=== PATIENT | male | born 1940 | race Caucasian/White ===

== ENCOUNTER 2017-03-04 15:51 | Inpatient (IN) | payer MEDICARE, OTHER ==
[2017-03-04] MEDS ORDERED: NS 0.9% 1000 ML* 1,000 ML IV ONE (16:12)
[2017-03-04 16:36] LABS: Hemoglobin 13.4 g/dl (14.0-18.0); Mean Corpuscular Volume 90 fL (80-94); Mean Platelet Volume 10 um3 (7.4-10.4); White Blood Count 5.8 10^3/ul (3.5-10.8)
[2017-03-04 16:40] LABS: Hematocrit 40 % (42-52); Mean Corpuscular HGB Conc 33 g/dl (31-36); Mean Corpuscular Hemoglobin 30 pg (27-31); Red Blood Count 4.44 10^6/ul (4.0-5.4); Red Cell Distribution Width 13 % (10.5-15)
[2017-03-04 16:41] LABS: Add Diff/Slide Review? Slide Review Added; Comments Flag Yes
[2017-03-04 16:42] LABS: Albumin 3.8 g/dL (3.2-5.2); BUN/Creatinine Ratio 21.1 (8-20); EGFR African American 98.6 (>60); EGFR Non-African American 76.7 (>60); Globulin 2.5 g/dL (2-4); Magnesium 2.2 mg/dL (1.9-2.7); Potassium 3.6 mmol/L (3.5-5.0); Total Bilirubin 0.5 mg/dL (0.2-1.0); Total Protein 6.3 g/dL (6.4-8.9)
[2017-03-04 16:43] LABS: Troponin I 0.01 ng/mL (<0.04)
--- NOTE | 2017-03-04 17:02 | RAD ---
INDICATION: Syncope COMPARISON: Chest x-ray dated January 06, 2016 TECHNIQUE: Single AP portable view of the chest was obtained. FINDINGS: Image quality is compromised due to the relative inferiority of a portable chest x-ray. The heart and mediastinum exhibit normal size and contour. There is a linear density at the dependent lateral left lung similar to the prior chest x-ray. The lungs are otherwise adequately aerated. There is no evidence of a large pleural effusion. Visualized bones are normal for the patient's age. IMPRESSION: No radiographic evidence for acute cardiopulmonary abnormality on this portable chest x-ray.
[2017-03-04 17:05] LABS: TSH (Thyroid Stimulating Horm) 3.66 mcIU/mL (0.34-5.60)
[2017-03-04] MEDS ORDERED: Gelfoam 12-7 ADSORBABL SPONGE* 1 EA SPONGE ONE ×2 (17:16→17:17)
[2017-03-04] MEDS ORDERED: Ondansetron INJ* 2 MG/ML VIAL IV PRN (17:50)
[2017-03-04] MEDS ORDERED: fentaNYL* 50 MCG/ML 2 ML VIAL (100 MCG VIAL) ONE (18:10)
[2017-03-04] MEDS ORDERED: Midazolam* 1 MG/ML 10 ML VIAL (10 MG) ONE (18:10)
--- NOTE | 2017-03-04 18:12 | RAD ---
INDICATION: Laceration to the posterior scalp after a syncopal episode and fall. COMPARISON: Most recent CT the brain is dated January 06, 2016 TECHNIQUE: Contiguous axial sections of the brain were obtained from the skull base to the vertex without contrast. FINDINGS: The ventricles, cisterns and sulci mild and symmetric involutional changes similar in appearance to the previous CT of the brain. There is a mild degree of periventricular and subcortical white matter hypoattenuation most consistent with chronic microvascular disease similar in appearance to the prior brain CT. Otherwise the pham-white matter differentiation is adequately maintained and there is no sulcal effacement. No significant focal abnormality or mass effect is present. There is no evidence for intracranial hemorrhage. Beneath the subcutaneous fat overlying the left of midline parietal bone there is induration and thickening measuring 9 mm with scattered small foci of gas. There is no underlying fracture or dislocation of the calvarium. The visualized portion of the paranasal sinuses and mastoid air cells appear clear. IMPRESSION: CT findings are compatible with left scalp laceration and subgaleal hematoma without underlying calvarial fracture or acute intracranial hemorrhage.
[2017-03-04 18:35] LABS: Urine Bilirubin Negative (Negative); Urine Glucose Negative (Negative); Urine Nitrite Negative (Negative)
--- NOTE | 2017-03-04 18:51 | ED ---
Donald Topete Tiffany, scribed for Muriel Briceno MD on 03/04/17 at 1816 . Syncope/Near Syncope - HPI Summary HPI Summary: This patient is a 76 year old M presenting to [facility] accompanied by with a chief complaint of syncope since a few minutes ago. The patient was driving to play tennis with his daughter earlier this afternoon when he felt dizziness. He pulled over to the side of the road to check his pulse, which was normal (68 BPM ). He arrived at the [employer] and went to the bathroom to take his pulse, which he noted was slow. From the [employer], his drove him to [facility]. In the car, he checked his pulse, which was 48 BPM. At the registration desk in the ED, the patient fainted (true syncope). He fell straight on the back of his head and sustained a laceration on the back of his head. The patient denies chest pain and chest pressure at the moment. Earlier, he felt dizziness and chest tightness, both of which are resolved at the time of evaluation. The patients heart rate is 38 BPM and blood pressure 131/60 at the time of evaluation. The patient takes 25mg of levothyroxine once a day and baby aspirin once a day. The patient reports that he has had echocardiography done in the past to check for possible enlargement of aorta per pt, and his masonry contractor is Dr. Wallace. Pt has had bradycardia in the past, but was not a candidate for permanent pacemaker in the past. - History Of Current Complaint Chief Complaint: EDSyncope Time Seen by Provider: 03/04/17 16:00 Hx Obtained From: Patient, Family/Bookstore Clerk - Onset/Duration: Sudden Onset, Lasting Minutes, Resolved Timing: Constant Context: Witnessed Activity At Onset: Other - Standing Associated Head Trauma: Yes Aggravating Factor(s): Nothing Alleviating Factor(s): Nothing Associated Signs And Symptoms: Negative - Chest pain, Dizzy, Head Trauma (Recent ) - scalp laceration with syncope at registration desk, Other - bradycardia noted by pt prior to syncope Frequency: Episodes x___ - 2 total in ED (one at registration desk, one while in ED room) - Risk Factors Cardiac Risk Factors: Negative Dysrhythmia Risk Factors: Age Greater Than 45 - Allergies/Home Medications Allergies/Adverse Reactions: Allergies Allergy/AdvReac Type Severity Reaction Status Date / Time Lactose Intolerance (GI) Allergy GI Upset Verified 01/15/16 11:40 Sulfa Antibiotics Allergy Rash Verified 01/06/16 12:11 PMH/Surg Hx/FS Hx/Imm Hx Previously Healthy: No Endocrine/Hematology History: Denies: Hx Diabetes Cardiovascular History: Reports: Hx Hypercholesterolemia - borderline, Hx Syncope, Other Cardiovascular Problems/Disorders - hx bradycardia, no ischemic heart disease on stress echo 1 year ago Denies: Hx Angina, Hx Coronary Artery Disease, Hx Hypertension, Hx Myocardial Infarction Respiratory History: Reports: Hx Seasonal Allergies Denies: Hx Asthma, Hx Chronic Obstructive Pulmonary Disease (COPD) GI History: Reports: Hx Gastroesophageal Reflux Disease, Hx Ulcer Musculoskeletal History: Reports: Hx Back Problems, Hx Bursitis - previous tennis elbow, Hx Tendonitis Sensory History: Reports: Hx Contacts or Glasses Denies: Hx Cataracts Opthamlomology History: Reports: Hx Contacts or Glasses Denies: Hx Cataracts - Surgical History Surgery Procedure, Year, and Place: none Infectious Disease History: No Infectious Disease History: Denies: Traveled Outside the [place] in Last 30 Days - Family History Known Family History: Positive: Other - Father had pacemaker Family History: "Father had a pacemaker put in in his 70's" - Social History Occupation: Retired Lives: With Family Alcohol Use: None Alcohol Amount: no longer uses EtOH, used to have daily glass of wine Hx Substance Use: No Substance Use Type: Reports: None Hx Tobacco Use: Yes Smoking Status (MU): Former Smoker Type: Pipe Length of Time of Smoking/Using Tobacco: 2-3 years Have You Smoked in the Last Year: No Review of Systems Constitutional: Negative Eyes: Negative Negative: Chest Pain Respiratory: Negative Gastrointestinal: Negative Musculoskeletal: Negative Skin: Negative Neurological: Other - Dizziness Positive: Syncope Psychological: Normal All Other Systems Reviewed And Are Negative: Yes Physical Exam Triage Information Reviewed: Yes Vital Signs On Initial Exam: Initial Vitals Temp Pulse Resp BP Pulse Ox 97.7 F 39 16 131/60 100 03/04/17 15:53 03/04/17 15:53 03/04/17 15:53 03/04/17 15:53 03/04/17 15:53 Vital Signs Reviewed: Yes Appearance: Positive: No Pain Distress, Well-Nourished, Ill-Appearing Skin: Positive: Warm, Skin Color Reflects Adequate Perfusion Head/Face: Positive: Cephalohematoma - post occiput with 4 superficial lacerations, bleeding controlled, palpable cephalohematoma. Gelfoam applied. Eyes: Positive: EOMI, MARQUISE, Conjunctiva Clear ENT: Positive: Normal ENT inspection, Pharynx normal Neck: Positive: Supple, Nontender, No Lymphadenopathy Respiratory/Lung Sounds: Positive: Clear to Auscultation, Breath Sounds Present - Normal, Other - No respiratory distress Cardiovascular: Positive: Pulses are Symmetrical in both Upper and Lower Extremities, Bradycardia, Other - Brisk capillary refill, no murmur, no edema, no calf tenderness Abdomen Description: Positive: Nontender, No Organomegaly, Soft Bowel Sounds: Positive: Present Musculoskeletal: Positive: Normal, Strength/ROM Intact Neurological: Positive: Sensory/Motor Intact, Alert, Oriented to Person Place, Time, Facial Symmetry, Speech Normal Psychiatric: Positive: Normal - Browns Coma Scale Best Eye Response: 4 - Spontaneous Best Motor Response: 6 - Obeys Commands Best Verbal Response: 5 - Oriented Glascow Coma Scale Comments: 15 Diagnostics - Vital Signs Vital Signs Temp Pulse Resp BP Pulse Ox 03/04/17 17:30 68 16 145/72 100 03/04/17 17:15 70 16 146/83 100 03/04/17 17:00 71 18 147/71 100 03/04/17 16:33 37 14 134/95 100 03/04/17 16:30 42 16 99 03/04/17 16:27 100 03/04/17 15:53 97.7 F 39 16 131/60 100 - Laboratory Lab Results: Lab Results 03/04/17 03/04/17 03/04/17 Range/Units 16:04 16:04 16:04 WBC 5.8 (3.5-10.8) 10^3/ul RBC 4.44 (4.0-5.4) 10^6/ul Hgb 13.4 L (14.0-18.0) g/dl Hct 40 L (42-52) % MCV 90 (80-94) fL MCH 30 (27-31) pg MCHC 33 (31-36) g/dl RDW 13 (10.5-15) % Plt Count 177 (150-450) 10^3/ul MPV 10 (7.4-10.4) um3 Neut % (Auto) 57.5 (38-83) % Lymph % (Auto) 26.6 (25-47) % Lipscomb % (Auto) 6.8 (1-9) % Eos % (Auto) 8.0 H (0-6) % Baso % (Auto) 1.1 (0-2) % Absolute Neuts (auto) 3.3 (1.5-7.7) 10^3/ul Absolute Lymphs (auto) 1.5 (1.0-4.8) 10^3/ul Absolute Monos (auto) 0.4 (0-0.8) 10^3/ul Absolute Eos (auto) 0.5 (0-0.6) 10^3/ul Absolute Basos (auto) 0.1 (0-0.2) 10^3/ul Absolute Nucleated RBC 0.01 10^3/ul Nucleated RBC % 0.1 INR (Anticoag Therapy) (0.89-1.11) APTT (26.0-36.3) seconds Sodium 135 (133-145) mmol/L Potassium 3.6 (3.5-5.0) mmol/L Chloride 102 (101-111) mmol/L Carbon Dioxide 27 (22-32) mmol/L Anion Gap 6 (2-11) mmol/L BUN 20 (6-24) mg/dL Creatinine 0.95 (0.67-1.17) mg/dL Est GFR ( Amer) 98.6 (>60) Est GFR (Non-Af Amer) 76.7 (>60) BUN/Creatinine Ratio 21.1 H (8-20) Glucose 93 (70-100) mg/dL Lactic Acid 2.2 H* (0.5-2.0) mmol/L Calcium 9.0 (8.6-10.3) mg/dL Magnesium 2.2 (1.9-2.7) mg/dL Total Bilirubin 0.50 (0.2-1.0) mg/dL AST 23 (13-39) U/L ALT 18 (7-52) U/L Alkaline Phosphatase 48 (34-104) U/L Total Creatine Kinase 124 (10-223) U/L Troponin I 0.01 (<0.04) ng/mL B-Natriuretic Peptide ( - 100) pg/mL Total Protein 6.3 L (6.4-8.9) g/dL Albumin 3.8 (3.2-5.2) g/dL Globulin 2.5 (2-4) g/dL Albumin/Globulin Ratio 1.5 (1-3) TSH 3.66 (0.34-5.60) mcIU/mL 03/04/17 03/04/17 Range/Units 16:04 16:04 WBC (3.5-10.8) 10^3/ul RBC (4.0-5.4) 10^6/ul Hgb (14.0-18.0) g/dl Hct (42-52) % MCV (80-94) fL MCH (27-31) pg MCHC (31-36) g/dl RDW (10.5-15) % Plt Count (150-450) 10^3/ul MPV (7.4-10.4) um3 Neut % (Auto) (38-83) % Lymph % (Auto) (25-47) % Lipscomb % (Auto) (1-9) % Eos % (Auto) (0-6) % Baso % (Auto) (0-2) % Absolute Neuts (auto) (1.5-7.7) 10^3/ul Absolute Lymphs (auto) (1.0-4.8) 10^3/ul Absolute Monos (auto) (0-0.8) 10^3/ul Absolute Eos (auto) (0-0.6) 10^3/ul Absolute Basos (auto) (0-0.2) 10^3/ul Absolute Nucleated RBC 10^3/ul Nucleated RBC % INR (Anticoag Therapy) 0.94 (0.89-1.11) APTT 31.6 (26.0-36.3) seconds Sodium (133-145) mmol/L Potassium (3.5-5.0) mmol/L Chloride (101-111) mmol/L Carbon Dioxide (22-32) mmol/L Anion Gap (2-11) mmol/L BUN (6-24) mg/dL Creatinine (0.67-1.17) mg/dL Est GFR ( Amer) (>60) Est GFR (Non-Af Amer) (>60) BUN/Creatinine Ratio (8-20) Glucose (70-100) mg/dL Lactic Acid (0.5-2.0) mmol/L Calcium (8.6-10.3) mg/dL Magnesium (1.9-2.7) mg/dL Total Bilirubin (0.2-1.0) mg/dL AST (13-39) U/L ALT (7-52) U/L Alkaline Phosphatase (34-104) U/L Total Creatine Kinase (10-223) U/L Troponin I (<0.04) ng/mL B-Natriuretic Peptide 36 ( - 100) pg/mL Total Protein (6.4-8.9) g/dL Albumin (3.2-5.2) g/dL Globulin (2-4) g/dL Albumin/Globulin Ratio (1-3) TSH (0.34-5.60) mcIU/mL Result Diagrams: 03/04/17 16:04 03/04/17 16:04 Lab Statement: Any lab studies that have been ordered have been reviewed, and results considered in the medical decision making process. - EKG 16:03 Cardiac Rate: Bradycardia : Other Rate EKG Rhythm: 3rd Degree HB ST Segment: Non-Specific Ectopy: None EKG Interpretation: Non STEMI, discussed with Dr. Wallace Re-Evaluation - Re-Evaluation First Eval Re-Evaluation Time: 16:50 - While in CT on monitor with RN present, pt had episode of dizziness with 8 sec pause noted on monitor. Pt recovered spontaneously and awoke fully after the pause. Pt never stopped breathing. Once awake pt with SR, HR 100's BP 130's/60's range and pt fully alert and conversant, remembers waking up. Denies CP. Consult Dr. Wallace. Change: Worse Second Eval Re-Evaluation Time: 16:55 - gelfoam applied to post occiput lacerations with good hemostasis. Change: Improved Course/Dx Course Of Treatment: pt with syncopal episode at registration. noted with complete heart block on EKG, that spontaneously resolved to sinus rhythm, with maintainence of good blood pressure. Scalp laceration cleansed and irrigated by ED RN, gelfoam applied. No sutureable lac. Bleeding controlled. Dr. Wallace in ED to consult, transports pt to ICU for temporary pacemaker placement, followed by permanent pacemaker placement. - Diagnoses Differential Diagnosis/HQI/PQRI: Positive: Cerebral Vascular Accident, GI Bleed , Hypovolemia, Metabolic Reaction, Medication Reaction, Seizure, Transient Ischemic Attack Provider Diagnoses: Syncope, Complete heart block by electrocardiogram, Scalp laceration - Critical Care Time Critical Care Time: 30-74 min - 45 minutes Discharge - Discharge Plan Condition: Critical Disposition: ADMITTED TO [facility] documentation as recorded by the Donald rivero Tiffany accurately reflects the service I personally performed and the decisions made by Janak ireland Barbara J, MD.
[2017-03-04] MEDS ORDERED: Lidocaine 1% INJ* 10 MG/ML 30 ML SDV ONE (19:07)
--- NOTE | 2017-03-04 21:16 | RAD ---
INDICATION: Status post placement of a transvenous pacemaker COMPARISON: Same day chest x-ray acquired at 1629 hours TECHNIQUE: Single AP portable view of the chest was obtained at 2000 hours. FINDINGS: Image quality is compromised due to the relative inferiority of a portable chest x-ray. There is been interval placement of a central line at the right lateral neck terminating over the expected location of the right heart. The heart and mediastinum are otherwise normal in size and morphology. The lungs are grossly clear. There is no pneumothorax. IMPRESSION: Interval placement of a right neck central line with the tip overlying the heart. There is no pneumothorax or other acute abnormality.
--- NOTE | 2017-03-04 21:24 | CONS ---
CC: Dr. Wallace; Hospitalist service; Dr. Coulter CARDIOLOGY CONSULT NOTE: DATE OF CONSULT: 03/04/17 HISTORY OF PRESENT ILLNESS: I was asked by hospitalist service and ER physician to see this 76-year-old male patient who presented to the hospital with dizziness and near syncope. While in the emergency room, he had a syncopal episode. EKG documented him to be in a transient complete heart block , significant bradycardia. Cardiology consult was further requested. When I saw him in the emergency room, he was back to his sinus rhythm with the heart rate in the 60s. He does have known history of resting sinus bradycardia in the past and history of some dizziness in the past. He gives no history of hypertension, diabetes, hyperlipidemia, congestive heart failure, or coronary artery disease. He is not on rate limiting agents. He does have a history of gastroesophageal reflux disease. He said today he was going to his granddaughter's house and he did not feel well with some dizziness and he felt his pulse, which was slow. He came into the emergency room. He had no chest pain. No nausea. No vomiting. No hematochezia. No skin rash. No swelling in the lower extremities. No fever. No chills. No acute illnesses recently appreciated. Review of all other systems essentially is negative. MEDICATIONS: As an outpatient include: 1. Levothyroxine 25 mcg daily. 2. Calcium supplements. 3. Fish oil 1200 mg daily. 4. Aspirin 81 mg daily. 5. B complex 100 mg daily. ALLERGIES: He is allergic to SULFA giving him hives and LACTOSE. FAMILY HISTORY: No family history of premature coronary artery disease. SOCIAL HISTORY: He gives no history of smoking. No significant drinking. No history of illicit drug use. He lives with his . He quit smoking many, many years ago. He used to smoke pipe. REVIEW OF SYSTEMS: Review of all other systems essentially is negative. PHYSICAL EXAMINATION: He is awake, alert, and oriented. He is not in acute distress. He had no chest pain. His vitals; blood pressure is 140/80, pulse 60s and sinus rhythm. Head Exam: Normocephalic/atraumatic head. Ears, nose, and throat essentially benign. Neck: Supple. JVP is not elevated. No carotid bruits. No masses in the neck is appreciated. Chest: Clear to auscultation. No rales, no wheeze, no added sounds appreciated. Heart: Normal. Regular S1, S2. No added sounds. No gallops, no rubs. Abdomen: Benign, soft. Positive bowel sounds. Extremities: No edema. No cyanosis. No clubbing. Skin exam is normal. Psych: Normal affect and mood. HEALTH AND SAFETY INSTRUCTOR: No focal deficit is appreciated. DIAGNOSTIC STUDIES/LABORATORY DATA: His EKG, first one, showed him to be in nonspecific intraventricular conduction delay with evidence of what appears to be a complete heart block, which was transient. His labs; white blood cell 5.8, hemoglobin 13.4, hematocrit 40. His INR 0.94. Chemistry; sodium 135, potassium 3.6, chloride 102, anion gap 6, BUN 20, creatinine 0.95. Lactic acid 2.2. BNP 36. His troponin 0.01. TSH is 3.6. His chest x-ray initially was reported to have no acute illness. His EKG is as described. IMPRESSION: 1. Syncopal episode secondary to significant resting sinus bradycardia and transient complete heart block. 2. Borderline low potassium. 3. Abnormal EKG as described. 4. Hypothyroidism, on thyroid supplements. 5. History of normal left ventricular systolic function. 6. History of trace mitral insufficiency, tricuspid insufficiency. 7. History of mildly dilated ascending aorta. 8. History of right bundle-branch block. 9. Stress echo done within a year or so showed him to have no ischemia. PLAN: The patient will be admitted to the intensive care unit. He will be under close observation. IV fluids as ordered. Correct electrolytes, especially potassium keep it around 4. Because of his syncopal episode and transient complete heart block, I discussed with the patient and the temporary transvenous pacemaker, which he is agreeable. Benefits, risks discussed with the patient. He is willing to proceed. Any further recommendations will be pending his clinical outcome. He is a candidate for permanent pacemaker implantation, which we are planning to schedule him sometime on Tuesday hopefully. TIME SPENT: total critical care time is more than 90 minutes, not including time of temporary pacemaker insertion. I answered all of his concerns and questions up to their satisfaction. [id number]/[facility] #: [id number] SILVA
--- NOTE | 2017-03-04 21:32 | CONS ---
CONSULTATION NOTE: ADDENDUM: The addendum should say on his consult that total critical care time taking care of this patient is more than 90 minutes without the time for placement of the temporary transvenous pacemaker. [id number]/[facility] #: [id number] SILVA
--- NOTE | 2017-03-04 21:32 | CARD ---
CC: Hospitalist Service; Dr. Coulter; Dr. Wallace TEMPORARY TRANSVENOUS PACEMAKER PLACEMENT: DATE OF PROCEDURE: 03/04/17 INDICATION: The patient is a 76-year-old male patient who presented with syncopal episode, significantly bradycardic, was found to be in the emergency room with transient complete heart block and then a long pause up to 6 seconds. Transvenous temporary pacemaker was further recommended. DESCRIPTION OF PROCEDURE: Under sterile aseptic technique and as per protocol, access from the right internal jugular vein was obtained under vascular ultrasound guidance by Dr. Tan, the blockers skiver. A tipped balloon pacemaker was introduced successfully into the right ventricle without complications. The heart rate was set at 70 beats per minute. The patient tolerated the procedure very well and there were no complications. Immediate chest x-ray was ordered. CONCLUSION: Successful temporary transvenous pacemaker insertion for symptomatic syncope, transient complete heart block and significant bradycardia and long pauses. [id number]/[facility] #: [id number] MTDD
--- NOTE | 2017-03-04 22:13 | RAD ---
INDICATION: Clinical concern for pneumothorax. COMPARISON: None. TECHNIQUE: Single AP portable view of the chest was obtained. FINDINGS: Image quality is compromised due to the relative inferiority of a portable chest x-ray. There is no definite right-sided pneumothorax identified status post transvenous pacemaker insertion. Again seen is a right neck catheter with the tip terminating overlying the right heart. IMPRESSION: No definite pneumothorax status post pacemaker insertion.
--- NOTE | 2017-03-04 23:04 | HP ---
CC: Dr. Coulter * [facility] MEDICINE HISTORY AND PHYSICAL: DATE OF ADMISSION: 03/04/17 PRIMARY CARE PHYSICIAN: Dr. Coulter. ATTENDING PHYSICIAN: Devante Tan MD * (dictation provided by Alyson Jones NP). CHIEF COMPLAINT: Syncope. HISTORY OF PRESENT ILLNESS: Mr. Lynn is a 76-year-old male with past medical history of hypothyroidism and infrequent episodes of fainting, who presents to the hospital today after near syncopal episode at home. Mr. Lynn states that he has had ongoing episodes of syncope for a few decades. He describes an episode as far back as 1994> He had an episode where he passed out while out at a tennis court about 2 years ago for which he underwent extensive workup with Dr. Wallace. Per his report, he underwent stress testing, echocardiograms and a 21-day monitor, but no arrhythmias that would explain his syncopal episodes or other etiology was found. The patient reports having another episode on 02/19/17 when he was in the garden. He was bending over when he felt dizzy and fell backwards. His reported that he was snoring loudly and snorting and was unresponsive. The patient did not seek any medical attention after that episode as he felt that it was similar to the past episodes and perhaps was just related to bending over. The patient today was driving to his granddaughter's house to play tennis, when he began feeling flushed and that he might black out. He pulled over for a couple of minutes and felt better and then drove onto her house with plans to play tennis. However , when he got out of the car, he felt quite unsteady on his feet. He felt like he needed to have a bowel movement but when he got into the bathroom, he felt like he was going to pass out. He noted that his heart rate was in the 40s and therefore, he asked to be brought into the hospital for evaluation. At the emergency room human resources receptionist desk, he suddenly syncopized falling backwards and hitting his head. He was immediately brought back into the ED, where he has had multiple episodes of sinus pauses with third-degree block. He had an 8- second pause in the CT scanner, where he went for CT brain which was negative. PAST MEDICAL HISTORY: 1. Hypothyroidism. 2. Paroxysmal atrial fibrillation. MEDICATIONS: 1. Aspirin 81 mg p.o. daily. 2. Calcium citrate with vitamin D 1 tab p.o. daily. 3. Chondroitin 400 mg p.o. daily. 4. chewable tab p.o. t.i.d. 5. [place]-3 fatty acid 1 cap p.o. daily. 6. Vitamin B complex 1 cap p.o. daily. 7. Levothyroxine 25 mcg p.o. daily. ALLERGIES: LACTOSE and SULFA ANTIBIOTICS. FAMILY HISTORY: The patient reports that his mother at 90 from Alzheimer disease. Dad at 84, but he did have a pacemaker. SOCIAL HISTORY: The patient was a pipe smoker for about 2 years back in the 1960s. He drinks about one third cup of wine 2 times a week. There is no report of illicit drug use. He lives with his , Tena, who is the healthcare proxy. REVIEW OF SYSTEMS: General: No fevers, chills, or unintended weight loss. Cardiac: No chest pain or edema. Respiratory: No cough, hemoptysis, or shortness of breath. GI: No nausea, vomiting, diarrhea, or abdominal pain. : No gross hematuria or dysuria. Neuro: No focal weakness or sensory loss. Eyes: No vision complaints. ENT: No dysphagia. Musculoskeletal: No arthralgias or myalgias. Skin: No rashes, lesions. PHYSICAL EXAMINATION GENERAL: Mr. Lynn is sitting up in the bed immediately after receiving his temporary pacemaker under the direction of Dr. Wallace. He is in no acute distress. VITAL SIGNS: Temperature 97.7, heart rate 64, respiratory rate 15, O2 saturation 100% on 3 L nasal cannula, blood pressure 148/79. LUNGS: Clear to auscultation bilaterally with no accessory muscle use and good aeration. HEART: S1, S2. No murmur, rub, or gallop and regular. ABDOMEN: Soft, nontender with bowel sounds positive x4. EXTREMITIES: No cyanosis or edema. SKIN: Intact. NEUROLOGIC: He is alert. He is oriented x3. Moves all extremities equally. There is no facial asymmetry or focal weakness. Extraocular movements are intact. DIAGNOSTIC STUDIES/LAB DATA: WBC 5.8, hemoglobin 13.4, hematocrit 40, platelet count 177,000. INR 0.94. Sodium 135, potassium 3.6, chloride 102, serum bicarbonate 27, BUN 20, creatinine 0.95, glucose 93, lactic acid 2.2. Troponin 0.01. TSH 3.66. Urine shows no evidence of infection. Chest x-ray is read as above. CT brain is read as above. EKG is read as above. ASSESSMENT: Mr. Lynn is a 76-year-old male with past medical history of paroxysmal atrial fibrillation with episodes of syncope with no clear cause, who presents today to the hospital after feeling presyncopal and then he syncopized in the emergency room waiting area. He has now been found to have a third-degree heart block and is status post temporary pacemaker placement with Dr. Wallace. Our plans are for inpatient admission to the ICU as the expected length of stay is greater than 2 days for the followin. Third-degree heart block: The patient had successful placement of a temporary pacer with the heart rate in the 70s. He is feeling well. His blood pressure is stable. He is hemodynamically stable. Plan for further management per Dr. Wallace with plan for permanent pacemaker when that can be scheduled. 2. Hypothyroidism. Continue levothyroxine. 3. History of atrial fibrillation. The patient has been on aspirin outpatient for this indication. Plan to hold now while he has a temporary pacemaker in place. 4. Code status is full code. 5. DVT prophylaxis with SCDs. TIME SPENT: Approximately 60 minutes were spent on the admission of this patient, more than half time spent with the patient at the bedside reviewing the events leading up to this hospitalization, performing the physical examination, and reviewing the plan of care. ALYSON JONES NP [id number]/CPS #: [id number] SILVA
[2017-03-05] MEDS: Acetaminophen TAB* 325 MG PO PRN ×2 (01:20→23:13)
[2017-03-05] MEDS: Levothyroxine TAB* 25 MCG TAB PO SCH (06:05)
[2017-03-05] MEDS: NS 0.9% 1000 ML* 1,000 ML IV SCH ×2 (10:02→23:10)
--- NOTE | 2017-03-05 12:23 | PN ---
Critical Care Services: 76 yo male admitted last night with symptomatic bradycardia (due to intermittent complete heart block) and had temporary transvenous pacer placed - The patient had an uneventful evening, but this AM there is no pacer capture. The [place] heart rate is in the 60s and patient is asymptomatic (in bed). Vital Signs: Temp Pulse Resp BP SpO2 FiO2 98.2 F 75 22 130/70 99 Physical Exam: Gen:Awake, oriented, in no distress HEENT: No JVD Lungs:clear Cardiac: Reg rhythm. Extremities:No cyanosis or edema. Fluid Balance (Past 24 Hours): 03/05/17 06:59 Intake Total 2182 Output Total 775 Balance 1407 Weight 163 lb 5.8 oz Intake: IV Fluids 1682 NS (0.9%) 1682 Oral 500 Output: Urine 775 Labs: 03/04/17 18:05 Urine Color Yellow Urine Appearance Cloudy Urine pH 7.0 Ur Specific [place] 1.017 Urine Protein Negative Urine Ketones Negative Urine Blood Negative Urine Nitrate Negative Urine Bilirubin Negative Urine Urobilinogen Negative Ur Leukocyte Esterase Negative Urine Glucose Negative Studies: Post-insertion CXR: Pacer wire running from IJ vein down vena cava and into right side of the heart. Nutrition: Oral diet Impression: Intermittent complete heart block, requiring on-demand ventricular pacing. Plan: Cardiology service will adjust temporary pacer to achieve capture. Patient scheduled for permanent pacer on Tuesday.
--- NOTE | 2017-03-05 13:23 | RAD ---
INDICATION: Pacemaker placement. COMPARISON: Comparison is made with a prior study from one day earlier. TECHNIQUE: A portable view of the chest was obtained. FINDINGS: Cardiac and mediastinal contours appear to be within normal limits. There is a transvenous pacemaker wire. The catheter tip projects over the inferior aspect of the right atrium and inferior vena cava region. The lungs are clear. There is a small right pneumothorax which appears unchanged from the prior exam. No pleural effusion is seen. The results of this exam were discussed with the referring clinician. IMPRESSION: 1. SMALL RIGHT APICAL PNEUMOTHORAX, UNCHANGED. 2. CARDIAC PACEMAKER TIP PROJECTS OVER THE INFERIOR ASPECT OF THE RIGHT ATRIUM AND INFERIOR VENA CAVA.
[2017-03-06] MEDS ORDERED: Vancomycin per Pharmacy* NOTE FOLLOW UP PRN (00:30)
--- NOTE | 2017-03-06 00:49 | PN ---
Progress Note - Progress Note Date of Service: 03/06/17 Note: Nursing report temperature spike to 38.8C. Patient feels well, without complaints. He has no known source, but has had significant manipulation of a R IJ transvenous catheter site which is not functioning properly for his symptomatic bradycardia. His trancutaneous pacer pads are in place. Generator is functioning. CBC & blood CXs ordered. Start vancomycin & piperacillin/ tazobactam. Case reviewed w/ P MD Dominick rehab tech & Khadijah Walalce MD cardiology who both agree the R IJ line and TV pacer should be pulled. Removal was done at the bedside without complication. Patient tolerated the procedure well.
[2017-03-06] MEDS: Piperacillin/Tazobac ADVAN(*) 3.375 GM in NS 0.9% 100 ML* 100 ML IVPB SCH ×3 (00:50→17:30)
[2017-03-06] MEDS ORDERED: Vancomycin(*) 1,250 MG in NS 0.9% 250 ML* 250 ML IVPB ONE (01:00)
[2017-03-06 01:01] LABS: Hematocrit 36 % (42-52); Hemoglobin 12.1 g/dl (14.0-18.0); Mean Corpuscular HGB Conc 34 g/dl (31-36); Mean Corpuscular Hemoglobin 30 pg (27-31); Mean Corpuscular Volume 90 fL (80-94); Mean Platelet Volume 10 um3 (7.4-10.4); Red Blood Count 4.01 10^6/ul (4.0-5.4); Red Cell Distribution Width 13 % (10.5-15); White Blood Count 8.8 10^3/ul (3.5-10.8)
[2017-03-06] MEDS: Levothyroxine TAB* 25 MCG TAB PO SCH (05:16)
[2017-03-06 05:29] LABS: Hematocrit 36 % (42-52); Hemoglobin 12.1 g/dl (14.0-18.0); Mean Corpuscular HGB Conc 34 g/dl (31-36); Mean Corpuscular Hemoglobin 30 pg (27-31); Mean Corpuscular Volume 90 fL (80-94); Mean Platelet Volume 10 um3 (7.4-10.4); Red Blood Count 3.98 10^6/ul (4.0-5.4); Red Cell Distribution Width 14 % (10.5-15); White Blood Count 7.8 10^3/ul (3.5-10.8)
[2017-03-06 05:44] LABS: EGFR African American 110.6 (>60)
[2017-03-06] MEDS: Vancomycin(*) 1,000 MG in NS 0.9% 250 ML* 250 ML IVPB SCH ×3 (11:53→23:55)
--- NOTE | 2017-03-06 13:55 | PN ---
Critical Care Services: Fever last night necessitating removal of temporary pacer - also started on empiric antibiotic Rx with vancomycin and pipericillin - no fever since. Has external pads on for pacing if needed. Vital Signs: Temp Pulse Resp BP SpO2 FiO2 99.5 F 71 17 144/66 97 Physical Exam: Gen:Alert, oriented, appears comfortable Lungs:clear Cardiac: Reg rhythm Extremities:no rigors Fluid Balance (Past 24 Hours): 03/06/17 06:59 Intake Total 2869 Output Total 2800 Balance +69 Weight 157 lb Intake: IV Fluids 1583 NS (0.9%) 1583 IVPB 366 ABX - VANCOMYCIN 260 ABX - ZOSYN 106 Oral 920 Output: Urine 2000 [place] 800 Labs: 03/06/17 03/06/17 03/06/17 00:15 05:20 05:20 WBC 8.8 7.8 Hgb 12.1 L 12.1 L Hct 36 L 36 L Plt Count 143 L 142 L BUN 12 Creatinine 0.86 Studies: None. Blood culture results pending. Nutrition: Oral diet Impression: No signs of sepsis. Plan: Continue empiric antibiotics for now. Plan is to proceed with permanent pacer when (and if) blood cultures are negative.
[2017-03-06] MEDS: NS 0.9% 1000 ML* 1,000 ML IV SCH (15:02)
[2017-03-06] MEDS: Acetaminophen TAB* 325 MG PO PRN (19:43)
[2017-03-07] MEDS: Piperacillin/Tazobac ADVAN(*) 3.375 GM in NS 0.9% 100 ML* 100 ML IVPB SCH ×3 (01:16→17:48)
[2017-03-07] MEDS: Acetaminophen TAB* 325 MG PO PRN (03:00)
[2017-03-07 06:09] LABS: Hematocrit 35 % (42-52); Hemoglobin 11.7 g/dl (14.0-18.0); Mean Corpuscular HGB Conc 34 g/dl (31-36); Mean Corpuscular Hemoglobin 31 pg (27-31); Mean Corpuscular Volume 91 fL (80-94); Mean Platelet Volume 10 um3 (7.4-10.4); Red Cell Distribution Width 13 % (10.5-15); White Blood Count 6.8 10^3/ul (3.5-10.8)
[2017-03-07] MEDS: NS 0.9% 1000 ML* 1,000 ML IV SCH ×2 (06:23→22:43)
[2017-03-07] MEDS: Levothyroxine TAB* 25 MCG TAB PO SCH (06:23)
[2017-03-07] MEDS ORDERED: Vancomycin Trough Check NOTE FOLLOW UP ONE (11:30)
[2017-03-07] MEDS: Vancomycin(*) 1,000 MG in NS 0.9% 250 ML* 250 ML IVPB SCH ×2 (11:53→22:47)
[2017-03-07] MEDS: Heparin VIAL(*) 5000 UNITS/ML VIAL (FIVE THOUSAND) SUBCUT SCH ×2 (11:58→22:41)
--- NOTE | 2017-03-07 14:01 | PN ---
Critical Care Services: Continues to do well. No fever today - last temp elevation (101) at 7PM yesterday. All cultures negative so far. Vital Signs: Temp Pulse Resp BP SpO2 FiO2 97.8 F 61 20 123/80 97 Physical Exam: Gen: Alert, oriented Lungs: clear Extremities: No cyanosis or edema. Fluid Balance (Past 24 Hours): 03/07/17 06:59 Intake Total 3053 Output Total 1075 Balance +1977 Weight 159 lb Intake: IV Fluids 2250 ABX - VANCOMYCIN 266 ABX - ZOSYN 394 NS (0.9%) 1590 IVPB 303 ABX - VANCOMYCIN ABX - ZOSYN 303 Oral 500 Output: Urine 1075 [place] Other: Date of Last Bowel Movement # Bowel Movements 1 Estimated Stool Amount Small Labs: 03/07/17 03/07/17 05:45 11:50 WBC 6.8 Hgb 11.7 Hct 35 L Plt Count 132 Vancomycin Trough 8.4 Studies: None today Nutrition: Oral feeding Impression: No evidence of active infection. Plan: Permanent pacer placement tomorrow if still no signs of active infection. Has external pads on in the meantime.
[2017-03-08] MEDS: Piperacillin/Tazobac ADVAN(*) 3.375 GM in NS 0.9% 100 ML* 100 ML IVPB SCH ×3 (00:31→22:29)
[2017-03-08] MEDS: Levothyroxine TAB* 25 MCG TAB PO SCH (06:03)
[2017-03-08] MEDS ORDERED: ceFAZolin 2 GM PREMIX (*) 2 GM/50 ML BAG IVPB ONE (09:15)
[2017-03-08] MEDS ORDERED: ceFAZolin 1 GM/10 ML flush(*) SYRINGE for pocket flush (cardiology) FLUSH ONE (09:15)
[2017-03-08] MEDS ORDERED: ceFAZolin 1 GM VIAL(*) 1 GM in NS 0.9% 50 ML* 50 ML IVPB ONE (09:15)
[2017-03-08] MEDS ORDERED: Diazepam TAB(*) 5 MG PO ONE (09:15)
[2017-03-08] MEDS ORDERED: fentaNYL* 50 MCG/ML 2 ML VIAL (100 MCG VIAL) ONE (09:25)
[2017-03-08] MEDS ORDERED: Naloxone* 0.4 MG/ML 1 ML VIAL ONE (09:25)
[2017-03-08] MEDS ORDERED: Flumazenil* 0.1 MG/ML 5 ML MDV ONE (09:25)
[2017-03-08] MEDS ORDERED: Lidocaine 1% INJ* 10 MG/ML 30 ML SDV ONE (09:25)
[2017-03-08] MEDS ORDERED: Midazolam* 1 MG/ML 5 ML VIAL (5 MG) ONE (09:25)
--- NOTE | 2017-03-08 13:42 | RAD ---
INDICATION: Status post device implant. COMPARISON: Comparison is made with a prior chest x-ray study from March 05, 2017. TECHNIQUE: A portable view of the chest was obtained. FINDINGS: There is a transvenous pacemaker defibrillator present. The heart is within normal limits in size. There are small a moderate size bilateral pneumothoraces. The right pneumothorax is unchanged. The left no pneumothorax is new from the prior study. The lungs are clear. No pleural effusion is seen. The results of this exam were discussed with the referring clinician. IMPRESSION: SMALL TO MODERATE-SIZED BILATERAL PNEUMOTHORACES. THE RIGHT PNEUMOTHORAX IS UNCHANGED. THE LEFT PNEUMOTHORAX IS NEW FROM THE PRIOR STUDY.
[2017-03-08] MEDS: Vancomycin(*) 1,000 MG in NS 0.9% 250 ML* 250 ML IVPB SCH (15:28)
[2017-03-08] MEDS: NS 0.9% 1000 ML* 1,000 ML IV SCH (22:27)
[2017-03-08] MEDS: Acetaminophen TAB* 325 MG PO PRN (22:54)
[2017-03-09] MEDS: Vancomycin(*) 1,000 MG in NS 0.9% 250 ML* 250 ML IVPB SCH ×2 (01:25→13:08)
--- NOTE | 2017-03-09 04:37 | OP ---
CC: Dr. Wallace * DATE OF OPERATION: 03/08/17 - ROOM #439 DATE OF : 36 SURGEON: Brandan Goldstein MD. ANESTHESIA: Local anesthesia with conscious sedation. PRE-OP DIAGNOSES: Third-degree heart block, syncope. POST-OP DIAGNOSES: Third-degree heart block, syncope. OPERATIVE PROCEDURE: Dual-chamber pacemaker implantation. ESTIMATED BLOOD LOSS: Nil. COMPLICATIONS: None. INDICATIONS: The patient is a 76-year-old gentleman who was admitted to the hospital after a syncopal episode. He was noted to have third-degree heart block and long pauses of nonconductive P waves. A temporary wire was placed and permanent pacemaker was recommended. DESCRIPTION OF PROCEDURE: The patient was brought to the procedure room in a fasting state. Informed consent had been obtained prior to the procedure. All labs had been reviewed. The patient was placed supine on the procedure table. His left deltopectoral area was cleaned and draped in the usual fashion. 1% lidocaine was used for local anesthesia. The axillary vein was entered by a modified Seldinger technique and a guidewire was placed. The second guidewire was placed in the same technique. A 3.5-cm incision was made in the pectoral area and blunt dissection was carried down to the pectoral fascia. A pocket was fashioned for the pacemaker. Over the first guidewire, a 7-Tajik sheath introducer was placed, through which a right ventricular lead was then advanced the RV apex. The right ventricular lead is a Medtronic model 5076, serial # [id number], had R-wave sensitivity of 2.1, impedance 851 ohms, threshold 0.6 volts at 0.5 milliseconds. The ventricular lead was then sutured to the pectoral fascia using 0 silk. Over the second guidewire, a 7-Tajik sheath introducer was placed through which a right atrial lead was advanced to the high right atrium. The right atrial lead is a Medtronic model 5076, serial # [id number] that had a P-wave sensitivity of 3.8, impedance 581 ohms, threshold 1 volt at 0.5 milliseconds. The atrial lead was sutured to the pectoral fascia. The pocket was flushed with antibiotic-infused normal saline. A pacer generator was attached appropriately to the atrial and ventricular lead. The generator is a Medtronic model A2DR01, serial #[id number]. The device was placed in the pocket. The surgical incision was closed in 3 layers. The patient tolerated the procedure well with no complications. At the end of the procedure, a re-interrogation of the device demonstrated an R-wave sensitivity of 4. [id number]/[facility] #: [id number] MTDD
[2017-03-09] MEDS: Piperacillin/Tazobac ADVAN(*) 3.375 GM in NS 0.9% 100 ML* 100 ML IVPB SCH ×2 (05:42→14:16)
[2017-03-09] MEDS: Levothyroxine TAB* 25 MCG TAB PO SCH (05:58)
[2017-03-09] MEDS: Acetaminophen TAB* 325 MG PO PRN ×2 (05:58→21:10)
--- NOTE | 2017-03-09 08:19 | RAD ---
INDICATION: Status post implantation of cardiac device COMPARISON: Most recent chest x-ray February 28, 2017 that showed bilateral pneumothoraces TECHNIQUE: PA and lateral views of the chest were obtained. FINDINGS: Again seen is a left upper chest cardiac pacemaker with 2 leads overlying the heart. There is a small right-sided pneumothorax not significantly changed in the previous chest x-ray. The left-sided pneumothorax is small to moderate with the lung measuring approximately 2.9 cm from the chest wall apex. Given differences in technique this is unchanged in the previous chest x-ray. Visualized bones are normal for the patient's age. There is no radiographic evidence of free air beneath the diaphragm IMPRESSION: BILATERAL PNEUMOTHORACES NOT SIGNIFICANTLY CHANGED FROM THE PREVIOUS DAYS CHEST X-RAY.
[2017-03-09] MEDS ORDERED: Vancomycin Trough Check NOTE FOLLOW UP ONE (11:30)
--- NOTE | 2017-03-09 14:05 | PN ---
Subjective Date of Service: 03/09/17 - cc: syncope Interval History: No trouble breathing, no recurrence of dizziness. Walking w/o difficulty. Medications Active Medications: Acetaminophen (Tylenol Tab*) 650 mg PO Q6H PRN PRN Reason: PAIN Last Admin: 03/09/17 05:58 Dose: 650 mg Piperacillin Sod/Tazobactam (Sod 3.375 gm/ Sodium Chloride) 100 mls @ 25 mls/ hr IVPB 0500,1300,2100 [facility] Stop: 03/09/17 20:59 Last Admin: 03/09/17 05:42 Dose: 25 mls/hr Piperacillin Sod/Tazobactam (Sod 3.375 gm/ Dextrose) 100 mls @ 25 mls/hr IVPB Q8H [facility] Stop: 03/10/17 20:59 Piperacillin Sod/Tazobactam (Sod 3.375 gm/ Sodium Chloride) 100 mls @ 25 mls/ hr IVPB Q8H [facility] Levothyroxine Sodium (Synthroid Tab*) 25 mcg PO DAILY@0600 [facility] Last Admin: 03/09/17 05:58 Dose: 25 mcg Ondansetron HCl (Zofran Inj*) 4 mg IV Q6H PRN PRN Reason: NAUSEA Objective Vital Signs: Temp Pulse Resp BP Pulse Ox 97.7 F 63 20 120/64 97 03/09/17 11:16 03/09/17 11:16 03/09/17 11:16 03/09/17 11:16 03/09/17 11:16 Oxygen Devices in Use Now: None Appearance: lean fit elderly male, appears spry in no distress. Eyes: No Scleral Icterus, PERRLA Ears/Nose/Mouth/Throat: NL Teeth, Lips, Gums, Mucous Membranes Moist Neck: NL Appearance and Movements; NL JVP, Trachea Midline, No Thyroid Enlargement, Masses Respiratory: Symmetrical Chest Expansion and Respiratory Effort - slightly diminished at the apices. Cardiovascular: NL Sounds; No Murmurs; No JVD, RRR Abdominal: NL Sounds; No Tenderness; No Distention Extremities: No Edema Skin: No Rash or Ulcers - pacer site L, aj intact, no ecchymosis, no evidence of infection, no evidence significant hematoma, aj intact. Neurological: Alert and Oriented x 3, NL Gait, NL Muscle Strength and Tone Lines/Tubes/Other Access: Clean, Dry and Intact Peripheral IV Laboratory Results: 03/07/17 05:45 03/06/17 05:20 INR (Anticoag Therapy) 0.94 (0.89-1.11) 03/04/17 16:04 APTT 31.6 seconds (26.0-36.3) 03/04/17 16:04 Total Bilirubin 0.50 mg/dL (0.2-1.0) 03/04/17 16:04 AST 23 U/L (13-39) 03/04/17 16:04 ALT 18 U/L (7-52) 03/04/17 16:04 Alkaline Phosphatase 48 U/L (34-104) 03/04/17 16:04 B-Natriuretic Peptide 36 pg/mL (-100) 03/04/17 16:04 Total Protein 6.3 g/dL (6.4-8.9) L 03/04/17 16:04 Albumin 3.8 g/dL (3.2-5.2) 03/04/17 16:04 Globulin 2.5 g/dL (2-4) 03/04/17 16:04 Albumin/Globulin Ratio 1.5 (1-3) 03/04/17 16:04 TSH 3.66 mcIU/mL (0.34-5.60) 03/04/17 16:04 Diagnostic Imaging: CXR today: small pneuothorax L apex and Right, stable per Dr Mccormack c/w yesterday. CXR: 03/05: Pneumothorax R only. EKG Data: Monitor: NSR. Assessment/Plan 76 yo with syncope, 3rd degree HB, POD #1 dual chamber pacemaker implantation. R pneumothorax from temp. pacer. Transient fevers post temporary pacer to aggressive antibiotics, now free of fever/feeling hot. L pneumothorax post permanent pacer. Feels well. 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 Pneumothorax: -Observe new one on left overnight, -recommend repeat CXR in AM Fevers, possible bacteremia, I agree with d/c of vanco, pip/tazo, recommend keflex 500 TID oral X 4 days. -Recommend recheck CBC in AM. Possible d/c tomorrow.
--- NOTE | 2017-03-09 14:29 | PN ---
Subjective Date of Service: 03/09/17 Interval History: Patient seen this afternoon. Says he is feeling very well, no chest pain, no SOB. Only some pain in R posterior shoulder which he thinks is from his fall. No fever. Family History: Unchanged from Admission Social History: Unchanged from Admission Past Medical History: Unchanged from Admission Objective Active Medications: Acetaminophen (Tylenol Tab*) 650 mg PO Q6H PRN Cephalexin HCl (Keflex Cap*) 500 mg PO TID [facility]NA[facility] Piperacillin Sod/Tazobactam (Sod 3.375 gm/ Sodium Chloride) 100 mls @ 25 mls/ hr IVPB 0500,1300,2100 [facility] Levothyroxine Sodium (Synthroid Tab*) 25 mcg PO DAILY@0600 [facility] Ondansetron HCl (Zofran Inj*) 4 mg IV Q6H PRN Vital Signs 03/08/17 03/08/17 03/08/17 14:37 15:27 19:30 Temperature 97.6 F 99.5 F Pulse Rate 64 74 Respiratory 16 18 Rate Blood Pressure 143/71 144/66 (mmHg) O2 Sat by Pulse 100 100 100 Oximetry 03/09/17 03/09/17 03/09/17 07:42 08:00 11:16 Temperature 97.5 F 97.7 F Pulse Rate 64 63 Respiratory 20 18 20 Rate Blood Pressure 130/71 120/64 (mmHg) O2 Sat by Pulse 98 97 Oximetry Oxygen Devices in Use Now: None Appearance: Elderly, M, laying in bed in NAD Eyes: No Scleral Icterus Ears/Nose/Mouth/Throat: Mucous Membranes Moist, - - Dried blood on posterior occipital area Respiratory: Symmetrical Chest Expansion and Respiratory Effort, Clear to Auscultation Cardiovascular: NL Sounds; No Murmurs; No JVD, RRR, - - PPM site with dressing in place, c/d/i Abdominal: NL Sounds; No Tenderness; No Distention Lymphatic: No Cervical Adenopathy Extremities: No Edema Skin: No Rash or Ulcers Neurological: Alert and Oriented x 3 Result Diagrams: 03/07/17 05:45 03/06/17 05:20 Additional Lab and Data: . Microbiology and Other Data: . Assess/Plan/Problems-Billing Assessment: Syncope 2/2 3rd degree heart block in a 76 yo M with hx of hypothyroidism and pAF - Patient Problems (1) Third degree AV block Current Visit: Yes Comment: Appreciate Cardiology assistance. S/P PPM by Dr. Goldstein on 03/08 after transvenous pacemaker placed previously. Had some fever after temporary PM and prior to PPM and had been getting ABx, will continue on oral Keflex as per Cardiology (2) Bilateral pneumothoraces Current Visit: Yes Comment: R PTX after transvenous placement and L PTX after PPM placement. Both stable on imaging, patient asymptomatic. Will repeat CXR tomorrow AM. (3) Hypothyroidism Current Visit: Yes Comment: Continue home synthroid (4) Paroxysmal A-fib Current Visit: Yes Comment: May resume ASA on discharge (5) DVT prophylaxis Current Visit: Yes Comment: SCDs Status and Disposition: Plan for discharge on 03/10
[2017-03-09] MEDS: Cephalexin CAP* 500 MG PO SCH ×2 (14:34→21:10)
[2017-03-09] MEDS ORDERED: Piperacillin/Tazobac ADVAN(*) 3.375 GM in D5W 100 ML BAG* 100 ML IVPB SCH (21:00)
[2017-03-10 06:44] LABS: Hematocrit 32 % (42-52); Hemoglobin 10.9 g/dl (14.0-18.0); Mean Corpuscular HGB Conc 34 g/dl (31-36); Mean Corpuscular Hemoglobin 30 pg (27-31); Mean Corpuscular Volume 90 fL (80-94); Mean Platelet Volume 9 um3 (7.4-10.4); Red Blood Count 3.57 10^6/ul (4.0-5.4); Red Cell Distribution Width 13 % (10.5-15)
[2017-03-10] MEDS: Levothyroxine TAB* 25 MCG TAB PO SCH (06:46)
--- NOTE | 2017-03-10 08:15 | PN ---
Subjective Date of Service: 03/10/17 - CC: syncope (past) Interval History: The patient had his first good night's sleep. No trouble breathing, no recurrence of dizziness. The patient had multiple questions including: Why/how he got the pneumthorax and what is the follow up? If he could have coffee, now on diet that restricts it here. Is PO Arnica supplement OK. . Medications Active Medications: Acetaminophen (Tylenol Tab*) 650 mg PO Q6H PRN PRN Reason: PAIN Last Admin: 03/09/17 21:10 Dose: 650 mg Cephalexin HCl (Keflex Cap*) 500 mg PO TID [facility] Last Admin: 03/09/17 21:10 Dose: 500 mg Levothyroxine Sodium (Synthroid Tab*) 25 mcg PO DAILY@0600 [facility] Last Admin: 03/10/17 06:46 Dose: 25 mcg Ondansetron HCl (Zofran Inj*) 4 mg IV Q6H PRN PRN Reason: NAUSEA Objective Vital Signs: Temp Pulse Resp BP Pulse Ox 98.4 F 59 16 131/60 96 03/10/17 03:54 03/10/17 03:54 03/10/17 03:54 03/10/17 03:54 03/10/17 06:00 Oxygen Devices in Use Now: None Appearance: lean fit elderly male, lying at 20 degrees, appears spry in no distress. Eyes: No Scleral Icterus, PERRLA Ears/Nose/Mouth/Throat: NL Teeth, Lips, Gums, Mucous Membranes Moist Neck: NL Appearance and Movements; NL JVP, Trachea Midline, No Thyroid Enlargement, Masses Respiratory: Symmetrical Chest Expansion and Respiratory Effort - slightly diminished at the apices. Cardiovascular: NL Sounds; No Murmurs; No JVD, RRR Abdominal: NL Sounds; No Tenderness; No Distention Extremities: No Edema Skin: No Rash or Ulcers - pacer site L, aj intact, no ecchymosis, no evidence of infection, no hematoma, aj intact. Neurological: Alert and Oriented x 3, NL Gait, NL Muscle Strength and Tone Lines/Tubes/Other Access: Clean, Dry and Intact Peripheral IV Laboratory Results: 03/10/17 06:23 03/06/17 05:20 INR (Anticoag Therapy) 0.94 (0.89-1.11) 03/04/17 16:04 APTT 31.6 seconds (26.0-36.3) 03/04/17 16:04 Total Bilirubin 0.50 mg/dL (0.2-1.0) 03/04/17 16:04 AST 23 U/L (13-39) 03/04/17 16:04 ALT 18 U/L (7-52) 03/04/17 16:04 Alkaline Phosphatase 48 U/L (34-104) 03/04/17 16:04 B-Natriuretic Peptide 36 pg/mL (-100) 03/04/17 16:04 Total Protein 6.3 g/dL (6.4-8.9) L 03/04/17 16:04 Albumin 3.8 g/dL (3.2-5.2) 03/04/17 16:04 Globulin 2.5 g/dL (2-4) 03/04/17 16:04 Albumin/Globulin Ratio 1.5 (1-3) 03/04/17 16:04 TSH 3.66 mcIU/mL (0.34-5.60) 03/04/17 16:04 Diagnostic Imaging: CXR 03/10/17: Small apical pneumothorax bilaterally, stable to improved c/w yesterday to my eye. No Xray interpretation yet. CXR 03/09/17: small pneuothorax L apex and Right, stable per Dr Mccormack c/w yesterday. CXR: 03/05: Pneumothorax R only. EKG Data: Monitor: NSR. 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 Bilateral pneumothorax as complication of procedures. Transient fevers post temporary pacer free of fever on less aggressive antibiotic regimen. Feels well. 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 ( 03/09/17) Follow up with Dr. Goldstein in 1 week for wound check, [phone]. Continue Keflex x 4 more days. Pneumothorax: Stable, option to recheck CXR Tuesday or Tuesday prior to wound check f/u visit. Fevers post temp pacer: follow clinically, pt should call immediately if recurrence, antibiotics as above. I answered the patient's questions, and OK from my standpoint to have caffiene.
--- NOTE | 2017-03-10 08:30 | RAD ---
INDICATION: Pneumothorax. COMPARISON: Comparison is made with prior chest x-ray studies from March 08, 2017 and March 10, 2017. TECHNIQUE: A portable view of the chest was obtained. FINDINGS: There is a dual-chamber transvenous pacemaker present. Heart is within normal limits in size. The lungs are underinflated. There is a small pneumothorax present on the right side and a small to moderate size pneumothorax present on the left side. The right pneumothorax is unchanged. The left pneumothorax appears slightly decreased in size from the study from March 08, 2017. IMPRESSION: 1. SMALL RIGHT PNEUMOTHORAX, UNCHANGED. 2. SMALL TO MODERATE SIZE LEFT PNEUMOTHORAX SLIGHTLY DECREASED IN SIZE.
[2017-03-10] MEDS: Cephalexin CAP* 500 MG PO SCH (08:40)
[2017-03-10 08:46] VITALS: BP 132/66
--- NOTE | 2017-03-10 10:31 | DCNOTE ---
Patient seen this morning. Feels well, no complaints. Ambulating around the unit yesterday with no SOB. On exam, RRR, s1 and s2 present, no m/g/r, lungs CTA B/L, no w/r/r, abd soft, NTND, BS+, no LE edema Discharge home today. Will order outpatient CXR for 02/12. F/U with Dr. Goldstein next week. 4 additional days of Keflex.
[2017-03-10] MEDS ORDERED: ZOSYN 3.375 GM Q8H per EXTENDED INFUSION IVPB SCH ×2 (21:00)
--- NOTE | 2017-03-11 01:52 | DS ---
CC: Dr. Coulter; Dr. rBandan Goldstein * DISCHARGE SUMMARY: DATE OF ADMISSION: 03/04/17 DATE OF DISCHARGE: 03/10/17 PCP: Dr. Coulter. PRINCIPAL DISCHARGE DIAGNOSIS: Complete heart block. SECONDARY DIAGNOSES: 1. Hypothyroidism. 2. Paroxysmal atrial fibrillation. DISCHARGE MEDICATION REGIMEN: 1. Aspirin 81 mg by mouth daily. 2. Keflex 500 mg by mouth 3 times daily. 3. Synthroid 25 mcg by mouth daily. 4. Isle-3 fatty acids 1 capsule by mouth daily. 5. Vitamin B complex 1 capsule by mouth daily. 6. Calcium citrate and vitamin D 1 tablet by mouth daily. 7. Chondroitin sulfate 400 mg by mouth daily. 8. Licorice glycine 1 chewable tablet by mouth 3 times daily. STUDIES DONE DURING HOSPITALIZATION: 1. CT of the brain, impression: CT findings compatible with left scalp laceration and subgaleal hematoma without underlying calvarial fracture or acute intracranial hemorrhage. 2. Chest x-ray, impression: No radiographic evidence for acute cardiopulmonary abnormality. 3. Repeat chest x-ray, 03/04/17, interval placement of a right neck central line with the tip overlying the heart. There is no pneumothorax or acute abnormality. 4. Chest x-ray, 03/04/17: No definite pneumothorax, status post pacemaker insertion. 5. Repeat chest x-ray, 03/05/17, impression: Small right apical pneumothorax. 6. Chest x-ray, 03/08/17, impression: Vihjr-ny-jyohyapy sized bilateral pneumothoraces. The right pneumothorax is unchanged, the left pneumothorax is new from prior study. 7. Chest x-ray, 03/10/17: Small right pneumothorax, unchanged. Small-to- moderate sized left pneumothorax, slightly decreased in size. CONSULTANTS DURING HOSPITALIZATION: 1. Dr. Wallace, Cardiology. 2. Dr. Goldstein, Cardiology. 3. Dr. Toscano, Cardiology. HISTORY OF PRESENT ILLNESS AND HOSPITAL SUMMARY: Please see the full history and physical by Alyson Jones NP, for full details. Briefly, Mr. Lynn is a 76 -year- old man with past medical history as above, who presented to the hospital after a number of episodes of feeling flushed and lightheaded and subsequently at the emergency room sales [employer] deck, the patient syncopized, struck his head on the ground. He was brought into the emergency department and while in to CT scan, was noted to have an 8-second pause and further telemetry and EKG monitoring was consistent with third-degree heart block. Dr. Wallace saw the patient urgently in the emergency department and a temporary pacemaker was placed. Unfortunately, the patient's placement of the pacemaker was complicated by a small pneumo-thorax. The patient was admitted to the ICU with a temporary pacer in place with plans for a permanent pacemaker placed after the holiday weekend. While in the ICU, the patient spiked a fever and subsequently underwent removal of the temporary pacemaker and was started on empiric antibiotics. External pacemaker pads were placed. The patient had numerous cultures, all of which remained negative aside from the patient's culture and stain from the transvenous pacemaker line that grew some epithelial cells, Staph epidermidis, and Propionibacterium acnes. On 03/08/17, the patient underwent a permanent pacemaker placement. Unfortunately, this procedure was complicated by a pneumothorax on the left side. The patient was monitored for few additional days and did not have any expansion of the pneumothoraces. He was transitioned to oral antibiotics and will continue for 4 additional days of Keflex after discharge. The patient was asymptomatic after transfer to the floor. He was ambulating without any issues and had no respiratory complaints. He will be discharged home and follow up with Dr. Goldstein in the clinic regarding his pacemaker and also follow up with his PCP as an outpatient. He will also be scheduled for an outpatient chest x- ray prior to his cardiology appointment. TIME SPENT: Total time spent on this discharge was 60 minutes. This is a summary of the hospitalization, please see the full medical record for further details. [id number]/[facility] #: [id number] [facility]
== END 2017-03-10 11:20 | disposition home or self-care (01) | DRG 243 ==
LOC: ED 15:51 → ICU 17:34 → MEDTELE 03-08 13:52
PROVIDERS: ADMIT Hospitalist; ATTEND Hospitalist
PROC: 5A1213Z Performance of Cardiac Pacing, Intermittent (ICD-10-PCS; principal; 2017-03-04)
PROC: 0JH606Z Insertion of Pacemaker, Dual Chamber into Chest Subcutaneous Tissue and Fascia, Open Approach (ICD-10-PCS; 2017-03-08)
PROC: 02H63JZ Insertion of Pacemaker Lead into Right Atrium, Percutaneous Approach (ICD-10-PCS; 2017-03-08)
PROC: 02HK3JZ Insertion of Pacemaker Lead into Right Ventricle, Percutaneous Approach (ICD-10-PCS; 2017-03-08)
DX: I44.2 Atrioventricular block, complete (principal); J95.811 Postprocedural pneumothorax; I08.1 Rheumatic disorders of both mitral and tricuspid valves; I45.10 Unspecified right bundle-branch block; R50.82 Postprocedural fever; I97.89 Other postprocedural complications and disorders of the circulatory system, not elsewhere classified; E03.9 Hypothyroidism, unspecified; E78.00 Pure hypercholesterolemia, unspecified; I48.0 Paroxysmal atrial fibrillation; R40.2362 Coma scale, best motor response, obeys commands, at arrival to emergency department; R40.2142 Coma scale, eyes open, spontaneous, at arrival to emergency department; R40.2252 Coma scale, best verbal response, oriented, at arrival to emergency department; S01.01XA Laceration without foreign body of scalp, initial encounter; W18.30XA Fall on same level, unspecified, initial encounter; K21.9 Gastro-esophageal reflux disease without esophagitis; J30.2 Other seasonal allergic rhinitis; I77.819 Aortic ectasia, unspecified site; Y71.3 Surgical instruments, materials and cardiovascular devices (including sutures) associated with adverse incidents; Y83.8 Other surgical procedures as the cause of abnormal reaction of the patient, or of later complication, without mention of misadventure at the time of the procedure; Y92.239 Unspecified place in hospital as the place of occurrence of the external cause; Z79.82 Long term (current) use of aspirin; Z87.891 Personal history of nicotine dependence; Z88.2 Allergy status to sulfonamides; Z88.8 Allergy status to other drugs, medicaments and biological substances; Y92.009 Unspecified place in unspecified non-institutional (private) residence as the place of occurrence of the external cause
CPT/HCPCS: 33208; 36415; 70450; 71010; 71020; 80053; 80202; 81003; 82550; 82565; 83605; 83735; 83880; 84443; 84484; 84520; 85025; 85027; 85610; 85730; 87040; 87070; 87076; 87077; 87186; 87205; 87641; 93005; 99156; 99157; A9270-GY; C1785; C1898; J0690; J1644; J2250; J2310; J2543; J3010; J3370

== ENCOUNTER 2017-06-04 10:46 | Emergency (ER) | payer MEDICARE, OTHER ==
[2017-06-04 12:08] VITALS: BP 127/63
--- NOTE | 2017-06-04 23:39 | ED ---
Donald Topete Tiffany, scribed for Muriel Briceno MD on 06/04/17 at 1153 . Complex/Multi-Sys Presentation - HPI Summary HPI Summary: The patient is a 76 year old M referred to [facility] from Dr. Domínguez office ( cardiology) accompanied by complains of tachycardia since 06/03/17. Symptoms aggravated by nothing. Symptoms alleviated by nothing. Patient has pacemaker due to 3rd degree AV block. Had 12-second episode of tachycardia a few weeks ago. Had treadmill nuclear stress test from Dr. Goldstein ( cardiology) on 06/03/17. Measured heart rate 125 on treadmill, then it dropped while still on treadmill. Adjustments to pacemaker were made yesterday. Last night, patient noticed fast pulse. Counted 27 counts in 15 seconds. Later measured 108 beats in 1-minute, which continued for 4 minutes, then gradually went down. Called Dr. Tan this morning, who referred him to ED. - History Of Current Complaint Chief Complaint: EDGeneral Time Seen by Provider: 06/04/17 11:29 Hx Obtained From: Patient Onset/Duration: Lasting Days - Since 06/03/17, Resolved Timing: Intermittent, Lasting: - From seconds to minutes Aggravating Factor(s): Nothing Alleviating Factor(s): Nothing - Allergies/Home Medications Allergies/Adverse Reactions: Allergies Allergy/AdvReac Type Severity Reaction Status Date / Time MS Lactose Intolerance (GI) Allergy GI Upset Verified 01/15/16 11:40 [Lactose Intolerance (GI)] MS Sulfa Antibiotics Allergy Rash Verified 01/06/16 12:11 [Sulfa Antibiotics] PMH/Surg Hx/FS Hx/Imm Hx Previously Healthy: No Endocrine/Hematology History: Reports: Hx Thyroid Disease - Hypothyroid Denies: Hx Diabetes Cardiovascular History: Reports: Hx Hypercholesterolemia - borderline, Hx Pacemaker/ICD - 03/08/17, Hx Syncope, Other Cardiovascular Problems/Disorders - hx bradycardia, no ischemic heart disease on stress echo 1 year ago Denies: Hx Angina, Hx Coronary Artery Disease, Hx Hypertension, Hx Myocardial Infarction Respiratory History: Reports: Hx Seasonal Allergies Denies: Hx Asthma, Hx Chronic Obstructive Pulmonary Disease (COPD) GI History: Reports: Hx Gastroesophageal Reflux Disease, Hx Ulcer Musculoskeletal History: Reports: Hx Back Problems, Hx Bursitis - previous tennis elbow, Hx Tendonitis Sensory History: Reports: Hx Contacts or Glasses Denies: Hx Cataracts, Hx Hearing Aid Opthamlomology History: Reports: Hx Contacts or Glasses Denies: Hx Cataracts - Surgical History Surgery Procedure, Year, and Place: none Infectious Disease History: No Infectious Disease History: Denies: Traveled Outside the [place] in Last 30 Days - Family History Known Family History: Positive: Other - Father had pacemaker Family History: "Father had a pacemaker put in in his 70's" - Social History Alcohol Use: None Alcohol Amount: no longer uses EtOH, used to have daily glass of wine Hx Substance Use: No Substance Use Type: Reports: None Hx Tobacco Use: Yes Smoking Status (MU): Former Smoker Type: Pipe Length of Time of Smoking/Using Tobacco: 2-3 years Have You Smoked in the Last Year: No Review of Systems Negative: Fever Positive: Other - Tachycardic from pacemaker All Other Systems Reviewed And Are Negative: Yes Physical Exam - Summary Physical Exam Summary: Appearance: Ill-appearing, moderate pain distress, Well-nourished Skin: Warm, color reflects adequate perfusion Head: Normal Head/Face inspection Eyes: Conjunctiva clear ENT: Normal inspection Neck: Supple, no nodes, no JVD. Respiratory: Lungs clear, Normal breath sounds, no respiratory distress Cardio: pacemaker visible on left anterior chest Abdomen: soft, nontender Bowel sounds: present Musculoskeletal: Strength Intact/ ROM intact. No calf tenderness. No edema. Neuro: Alert, muscle tone normal, facial symmetry, speech normal, sensory/motor intact Psychological: Normal Triage Information Reviewed: Yes Vital Signs On Initial Exam: Initial Vitals Temp Pulse Resp BP Pulse Ox 98.5 F 73 17 115/70 99 06/04/17 10:55 06/04/17 10:55 06/04/17 10:55 06/04/17 10:55 06/04/17 10:55 Vital Signs Reviewed: Yes Diagnostics - Vital Signs Vital Signs Temp Pulse Resp BP Pulse Ox 06/04/17 10:55 98.5 F 73 17 115/70 99 - Laboratory Lab Statement: Any lab studies that have been ordered have been reviewed, and results considered in the medical decision making process. Re-Evaluation - Re-Evaluation First Eval Re-Evaluation Time: 12:04 Change: Unchanged Comment: Informed that Dr. Tan reviewed tracings and advised to discharge patient. Patient agreeable to discharge. Complex Multi-Symp Course/Dx Course Of Treatment: Allergies noted. Medications reviewed this visit. [employer] advised that pacemaker is working. Dr. Tan reviewed tracing and advised that patient can be discharged. Patient will be discharged. The patient is agreeable with this plan. - Physician Notifications Discussed Care Of Patient With: J Luis Tan Time Discussed With Above Provider: 11:43 Instructed by Provider To: Other - Dr. Tan says he will review tracing and call back. At 11:58, Dr. Tan said that patient can go home. Discharge - Discharge Plan Condition: Stable Disposition: HOME Patient Education Materials: Pacemaker (DC) Referrals: Juanjo Coulter MD [Primary Care Provider] - Brandan Goldstein MD [Medical Doctor] - (call on Tuesday06/06/17) Additional Instructions: Your pacemaker is functioning properly today. We discussed this with Dr. J Luis Tan. Dr. Tan reviewed your tracing. Return to the ER if you have new or worsening symptoms. The documentation as recorded by the Donald rivero Tiffany accurately reflects the service I personally performed and the decisions made by , Muriel Briceno MD.
== END 2017-06-04 12:08 | disposition home or self-care (01) ==
LOC: ED 10:46
DX: R00.0 Tachycardia, unspecified (principal); Z95.0 Presence of cardiac pacemaker; Z88.8 Allergy status to other drugs, medicaments and biological substances; E03.9 Hypothyroidism, unspecified; I10 Essential (primary) hypertension; E78.5 Hyperlipidemia, unspecified; Z79.899 Other long term (current) drug therapy
CPT/HCPCS: 99282